=== PATIENT | male | born 1970 | race African-American/Black ===

== ENCOUNTER 2021-04-19 11:16 | Emergency (ER) | payer SELFPAY ==
[~2021-04-19] VITALS: Ht 185.4 cm; Wt 193.0 kg
[2021-04-19 11:17] VITALS: BP 149/99
[2021-04-19] MEDS ORDERED: GLUCAGON,HUMAN RECOMBINANT 1MG/VIAL IV ONE (12:00)
== END 2021-04-19 12:29 | disposition left against medical advice (07) ==
LOC: ER 11:16
DX: R07.89 Other chest pain (principal); Z53.21 Procedure and treatment not carried out due to patient leaving prior to being seen by health care provider
CPT/HCPCS: 93005